=== PATIENT | male | born 1945 | race Caucasian/White ===

== ENCOUNTER 2016-12-16 21:37 | Emergency (ER) | payer MEDICARE, OTHER ==
[2016-12-16] MEDS ORDERED: Lidocaine 1% 20 ML MDV INJECT ONE (21:40)
[2016-12-16 22:17] VITALS: BP 143/73
[2016-12-16] MEDS ORDERED: Bacitracin Oint 1 GM U/D Packet TOP ONE (22:50)
--- NOTE | 2016-12-16 22:55 | EDM.PDOC ---
ED HPI GENERAL MEDICAL PROBLEM - General Chief Complaint: Laceration Stated Complaint: FISH HOOK IN RT THUMB Time Seen by Provider: 12/16/16 22:00 Source of Information: Reports: Patient History Limitations: Reports: No Limitations - History of Present Illness INITIAL COMMENTS - FREE TEXT/NARRATIVE: Single blanco of triple blanco hook caught in R thumb proximal nail Onset: Today - Related Data Allergies Allergy/AdvReac Type Severity Reaction Status Date / Time adhesive tape Allergy Rash Verified 12/16/16 22:47 ED ROS GENERAL - Review of Systems Review Of Systems: ROS reveals no pertinent complaints other than HPI. ED EXAM, SKIN/RASH Exam: See Below Text/Narrative:: Cut off shaft of fish hook protruding through prox nailbed. Distal CMS intact. Exam Limited By: No Limitations General Appearance: Alert, WD/WN, No Apparent Distress ED SKIN PROCEDURES - Foreign Body Removal Indication:: Fish hook Consent Obtained:: Patient Performing Doctor:: Domenic Argueta Anesthesia Type: Local (Digital block) Complications:: No (removed easily) Course - Vital Signs Last Recorded V/S: Last Vital Signs Temp 36.3 C 12/16/16 22:16 Pulse 59 L 12/16/16 22:16 Resp 14 12/16/16 22:16 BP 143/73 H 12/16/16 22:16 Pulse Ox 96 12/16/16 22:16 - Orders/Labs/Meds Meds: Medications Discontinued Medications Generic Name Dose Route Start Last Admin Trade Name Markell PRN Reason Stop Dose Admin Lidocaine HCl 20 ml 12/16/16 21:40 Xylocaine 1% INJECT 12/16/16 21:41 ONETIME ONE Departure - Departure Time of Disposition: 22:54 Disposition: Home, Self-Care 01 Clinical Impression: Nail bed injury, Foreign body (FB) in soft tissue Clinical Impression: (Ruled Out): Foreign body accidentally entering eye and adnexa - Discharge Information Instructions: Puncture Wound, [id number], Nail Bed Injury, [id number] Referrals: Marlyn Murguia MD [Primary Care Provider] -
== END 2016-12-16 23:24 | disposition home or self-care (01) ==
LOC: JP.ED 21:37
DX: S60.351A Superficial foreign body of right thumb, initial encounter (principal); Z91.048 Other nonmedicinal substance allergy status; W45.8XXA Other foreign body or object entering through skin, initial encounter
CPT/HCPCS: 10120; 64450; 99283; 99283-25